=== PATIENT | male | born 1955 | race Caucasian/White ===

== ENCOUNTER 2017-10-02 17:05 | Emergency (ER) | payer OTHER ==
[~2017-10-02] VITALS: Ht 170.2 cm; Wt 83.9 kg
[2017-10-02 17:09] VITALS: BP 137/79
== END 2017-10-02 17:42 | disposition home or self-care (01) ==
LOC: ER 17:05
DX: S61.213A Laceration without foreign body of left middle finger without damage to nail, initial encounter (principal); Z23 Encounter for immunization; F17.210 Nicotine dependence, cigarettes, uncomplicated; Z88.8 Allergy status to other drugs, medicaments and biological substances; W25.XXXA Contact with sharp glass, initial encounter; Y93.89 Activity, other specified; Y92.89 Other specified places as the place of occurrence of the external cause; Y99.8 Other external cause status

== ENCOUNTER → 2017-10-02 | Outpatient (CLI) | payer OTHER ==
[~2017-10-02] VITALS: Ht 170.2 cm; Wt 83.9 kg
[~2017-10-02] MED LIST: CAL-CITRATE PL1 EACH PO; DILAUDID2 M1 PO; ERYTHROMYCIN E3.5 G1 OPHTHALMIC; FISH OIL 1,001000 M2 PO; FOSAMAX 70 MG T70 M1 PO; MEDROLDOSEPACK PO; NAPROSYN500 MG PO; PERCOCET 10-321 EACH PO; VITAMIN D-32000 UNIT PO; VITAMIN D1000 UNI2 PO; ZOCOR PO
--- NOTE | ~2017-10-02 | HPC ---
[facility] [place] [address] PAIN MANAGEMENT CONSULTATION Name: DANYELLE PRATT Room #: REG [facility].#: [id number] Admission: 10/02/17 Attend Phys: Susanne Bueno MD Discharge: Date of : 57 Report #: [id number] THIS REPORT FOR: //name// CC: ONEL Bueno DATE OF SERVICE: 10/02/2017 FOLLOWUP COMPLAINT: "I have had some return of the pain and has returned to the pain clinic for another injection. I had back surgery and now the pain is going down my back with numbness and tingling. I also have some tingling in the front of my neck." FOLLOWUP HISTORY: The patient is a 62-year-old gentleman who has been seen in the past by the pain clinic. This was in 2008. The patient underwent series of epidural steroid injections at that time. Since that time, he has noted some worsening of his pain. He underwent surgery in the low back area. Rods and pedicle screws have been placed. At this juncture, he has noted some worsening of his pain and some recurrence of pain symptoms in the low back with pain radiating down into his legs. He states that he has returned to the pain clinic for evaluation and possible series of epidural steroid injection to help control the pain and discomfort, which he is experiencing. He notes pain in his lower back radiating down his leg in the right calf into the left area of his foot. Also, notes some weakness in this area. Notes that the pain has worsened over the last year. He describes that the pain involves numbness, tingling, spasms and some weakness. Rates it as 6/10. Notes that the pain is worse if he stands for too long as well as with over exertion. Hot baths and medications have been somewhat helpful. ALLERGIES: No known drug allergies. CURRENT MEDICATIONS: Calcium, fish oil 1000 mg, vitamin D3, Fosamax 70 mg, Zocor 40 mg. PAST MEDICAL HISTORY: Asthma, stomach problems, arthritis. PAST SURGICAL HISTORY: 1. Back surgery x 2, 2001 and approximately 2010. 2. Neck surgery ____ 1998. 3. Carpal tunnel, left x 3, 1991, 2000, and 2010. 4. Herniorrhaphy repair as a child. SOCIAL HISTORY: He is disabled, has not worked since 1997. Smoke cigarettes, [facility] [address] [place] [address] PAIN MANAGEMENT CONSULTATION Name: DANYELLE PRATT Room #: REG CLI [facility]#: [id number] Admission: 10/02/17 Attend Phys: Susanne Bueno MD Discharge: Date of : 57 Report #: [id number] 1-1/2 packs per day, smoked for about 30 years. Denies use of alcoholic beverages. REVIEW OF SYSTEMS: Questionnaire in the chart indicates some weight change, weakness, wears glasses, blurred vision, constipation, numbness in fingers and tingling sensation in the low back area as well as some in the upper extremities from cervical radicular problems, easy bruising tendency. LABORATORY DATA: No new laboratory values are available at the time of our interview. PHYSICAL EXAMINATION: GENERAL: The patient is a well-developed white male, appears his stated age. He is alert and oriented x 3. Affect is appropriate. NECK: No JVD. HEART: Regular rate. ABDOMEN: Nontender. MUSCULOSKELETAL: Without significant scoliosis, kyphosis or lordosis. He has some pain and discomfort, which radiates down into the L5-S1 distribution of his low back, particularly on the right side involving his foot. The patient walks with a slight antalgic gait. Uses hands to go from a sitting to a walking position. Some decreased movement in the low back area with a well-healed scar in the L4-L5 area. Some paraspinous muscle soreness, left and right at the zone. PAIN CLINIC ASSESSMENT: 1. The patient is not being treated for rheumatoid arthritis. He has some arthritic changes undergoing in his low back area. 2. Height 5 feet 7 inches, weight 185 pounds, BMI is 29. 3. Vital signs, blood pressure 142/83, pulse 67, respiratory rate 16, room air saturation 97%. 4. Pain intensity 6/10. 5. Fall risk, the patient has not fallen in the last 3 months. 6. The patient is not being treated with a blood thinner. 7. History of hypertension. The patient has not taken an antihypertensive medication. 8. Opioid therapy greater than 6 weeks, the patient is not on opioid therapy. 9. Risk assessment tool. 10. Functional assessment tool. 11. Recreational drug use, denies use of recreational drugs. 12. Smoker. The patient smokes 1 pack of cigarettes per day and this has been for many years, is in the process of trying smoking cessation. 13. Alcohol, the patient denies use of alcoholic beverages. IMPRESSION: 1. Lumbar radiculopathy with pain radiating down into the right leg, status [facility] [address] [place] [address] PAIN MANAGEMENT CONSULTATION Name: DANYELLE PRATT Room #: REG [facility]#: [id number] Admission: 10/02/17 Attend Phys: Susanne Bueno MD Discharge: Date of : 57 Report #: [id number] post fusion, low back with rods and pedicle screws at L4-L5. 2. Anemia. 3. Gastrointestinal/stomach problems. RECOMMENDATIONS: We discussed treatment options with the patient. Risks and benefits of an epidural steroid injection were again reviewed. Possible complications of the procedure were discussed. The patient elects to proceed. PROCEDURE NOTE: The patient was taken to the procedure area. He was assisted on the table. His back was sterilely prepped with Betadine. Anterior and posterior viewing using fluoroscopy was instituted. After the target area was noted, this area had been sterilely prepped with Betadine and infiltrated with 0.25% bupivacaine. A 17-gauge Tuohy with loss of resistance technique was then placed. A total of 80 mg Depo-Medrol, 40 mg triamcinolone and 2 mL of 0.25% bupivacaine was injected. The patient tolerated the procedure well. Pain was a 5 at the time of discharge. He will follow up in the future. Total of 17 seconds fluoroscopy time was used. Thank you very much for letting us participate in his care. We hope he continues to improve. By: [id number] Susanne Bueno MD /nt
[2017-10-02 09:55] VITALS: BP 142/83
== END | disposition home or self-care (01) ==
LOC: PAIN 06:54
DX: M54.16 Radiculopathy, lumbar region (principal); D64.9 Anemia, unspecified; M06.9 Rheumatoid arthritis, unspecified; I10 Essential (primary) hypertension; F11.20 Opioid dependence, uncomplicated; Z87.891 Personal history of nicotine dependence; Z98.890 Other specified postprocedural states; J45.909 Unspecified asthma, uncomplicated; Z79.899 Other long term (current) drug therapy

== ENCOUNTER → 2017-11-04 | Outpatient (CLI) | payer OTHER ==
[~2017-11-04] VITALS: Ht 170.2 cm; Wt 88.1 kg
--- NOTE | ~2017-11-04 | HPC ---
[facility] [address] [address] PAIN MANAGEMENT CONSULTATION Name: DANYELLE PRATT Room #: REG [facility].#: [id number] Admission: 11/04/17 Attend Phys: Susanne Bueno MD Discharge: Date of : 57 Report #: [id number] THIS REPORT FOR: //name// CC: Reji Bueno DATE OF SERVICE: 11/04/2017 FOLLOWUP COMPLAINT: "The pain improved, but I am still having some pain down into my leg." FOLLOWUP HISTORY: The patient is a 62-year-old gentleman, who has been seen in the Pain Clinic because of lumbar radiculopathy. He underwent an epidural steroid injection at the last visit, he did glean benefit from this. He continues to have pain, which he describes as problematic and rates it as a 4/10. He is having some numbness down into his right leg. He feels that his left leg, which was more problematic at the last visit, is improving. Overall, he would like to proceed with another epidural steroid injection. As you recall, he has undergone fixation of his low back area with rods and screws in the low back area at L4 and L5. ALLERGIES: No known drug allergies. MEDICATIONS: Calcium, fish oil 1000 mg, vitamin D3, Fosamax 70 mg, Zocor 40 mg. PAST MEDICAL HISTORY: Asthma, stomach problems, osteoarthritis. PAST SURGICAL HISTORY: Back surgery x 2 in 2001 and approximately 2010, neck surgery in 1998, carpal tunnel surgery left x 3 in 1991, 2000 and 2010. PAIN CLINIC ASSESSMENT: 1. The patient does have some arthritic changes in the lower portion of his back. He is not being treated for rheumatoid arthritis. 2. Height 5 feet 7 inches, weight 194 pounds, BMI is 30. 3. Vital signs: Blood pressure 136/88, pulse 64, respiratory rate 16, room air saturation 98%. 4. Pain intensity: 4/10. 5. Fall risk: The patient has not fallen in the last 3 months. 6. Blood thinner: The patient is not on a blood thinner 7. History of hypertension: The patient is not being treated for hypertension. 8. Opioid therapy greater than 6 weeks: The patient is not on opioid therapy. 9. Risk assessment tool: The patient is not on opioid medications. [address] [address] PAIN MANAGEMENT CONSULTATION Name: DANYELLE PRATT PENNY Room #: REG CLI [facility]#: [id number] Admission: 11/04/17 Attend Phys: Susanne Bueno MD Discharge: Date of : 57 Report #: [id number] 10. Functional assessment tool. 11. Recreational drug use: The patient denies using recreational drugs. 12. Tobacco: The patient smokes cigarettes on a daily basis about 1 pack per day. 13. Alcohol: The patient denies use of alcoholic beverages. PHYSICAL EXAMINATION: GENERAL: The patient is a well-developed white male. He appears his stated age. He is alert and oriented x 3. Affect is appropriate. Speech is fluent. HEENT: Normocephalic, atraumatic. Extraocular eye muscles intact. The patient is on somewhat thick glasses. Mucous membrane is moist. Sclerae nonicteric. Hearing is within normal limits. NECK: With no JVD or adenopathy. Good range of motion. HEART: Regular rate. ABDOMEN: Nontender. MUSCULOSKELETAL AND LOWER EXTREMITIES: Without significant scoliosis, kyphosis or lordosis. He has pain and discomfort, which radiates down the L5-S1 distribution, particularly on the right side. States that his foot has some numbness sensation in it. Walks with an antalgic gait. Uses hands to go from a sitting to walking position. Decreased movement in the lumbar area with well-healed scar at L4-L5. Some paraspinous muscle soreness on the right. IMPRESSION: 1. Lumbar radiculopathy, status post fusion of the L4-L5 areas with rods and pedicle screws. 2. Anemia. 3. Gastroesophageal stomach problems. RECOMMENDATIONS: We discussed treatment options with the patient. At this juncture, we will proceed with another epidural steroid injection. Risks and benefits of the procedure were again reviewed. Possible complication of the procedure, which could include but are not limited to infection, increased muscle soreness, headache, worsening of pain, bleeding, and no improvement in pain, and the patient elects to proceed. PROCEDURE NOTE: The patient was taken into the examination room. He was helped on the examination table. He was placed in the prone position. Fluoroscopy was used to identify the L5-S1 interspace using fluoroscopy. Anterior and posterior views were used. This area had been sterilely prepped with Betadine. 0.25% bupivacaine was infiltrated into the L5-S1 area on the right. A 17-gauge Tuohy with loss of resistance technique was used to gain access to the epidural space. There was no CSF, heme or paresthesia. A total of 80 mg Depo-Medrol, 40 mg triamcinolone, and 2 mL of 0.25% bupivacaine was injected. The patient tolerated the procedure well. There were no complications. A total of 8 mL fluoroscopy time was used. The patient's pain was 3 at the time of discharge. He will follow up in the future as needed. [facility] [address] [place] [address] PAIN MANAGEMENT CONSULTATION Name: DANYELLE PRATT Room #: REG [facility]#: [id number] Admission: 11/04/17 Attend Phys: Susanne Bueno MD Discharge: Date of : 57 Report #: [id number] We would like to thank you for letting us participate in his care. We hope he continues to improve. By: [id number] Susanne Bueno MD /nt
[2017-11-04 08:12] VITALS: BP 136/88
== END | disposition home or self-care (01) ==
LOC: PAIN 10-30 07:16
DX: M54.16 Radiculopathy, lumbar region (principal); D64.9 Anemia, unspecified; F17.210 Nicotine dependence, cigarettes, uncomplicated; I10 Essential (primary) hypertension; Z68.30 Body mass index [BMI] 30.0-30.9, adult; Z98.890 Other specified postprocedural states; J45.909 Unspecified asthma, uncomplicated; M19.90 Unspecified osteoarthritis, unspecified site; Z79.899 Other long term (current) drug therapy

== ENCOUNTER 2018-02-15 09:33 | Emergency (ER) | payer OTHER ==
[~2018-02-15] VITALS: Ht 170.2 cm; Wt 83.9 kg
== END 2018-02-15 10:46 | disposition home or self-care (01) ==
LOC: ER 09:33
DX: T15.92XA Foreign body on external eye, part unspecified, left eye, initial encounter (principal); F17.210 Nicotine dependence, cigarettes, uncomplicated; Z88.8 Allergy status to other drugs, medicaments and biological substances; X58.XXXA Exposure to other specified factors, initial encounter; Y93.89 Activity, other specified; Y92.89 Other specified places as the place of occurrence of the external cause; Y99.8 Other external cause status

== ENCOUNTER 2018-07-26 13:06 | Emergency (ER) | payer OTHER ==
[~2018-07-26] VITALS: Ht 170.2 cm; Wt 86.6 kg
[2018-07-26] MEDS ORDERED: IBUPROFEN 600600 M1 PO (14:31)
[2018-07-26 14:37] VITALS: BP 139/72
== END 2018-07-26 14:38 | disposition home or self-care (01) ==
LOC: ER 13:06
DX: S90.32XA Contusion of left foot, initial encounter (principal); F17.210 Nicotine dependence, cigarettes, uncomplicated; Z91.048 Other nonmedicinal substance allergy status; W00.0XXA Fall on same level due to ice and snow, initial encounter; Y92.89 Other specified places as the place of occurrence of the external cause; Y93.89 Activity, other specified; Y99.8 Other external cause status

== ENCOUNTER 2019-07-01 19:20 | Emergency (ER) | payer OTHER ==
[~2019-07-01] VITALS: Ht 170.2 cm; Wt 78.5 kg
[~2019-07-01 19:20] MED LIST changes: +IBUPROFEN 600600 M1 PO
[2019-07-01] MEDS ORDERED: PERCOCET 10-321 EAC1 PO (19:57)
[2019-07-01] MEDS ORDERED: SERTRALINE HCL50 MG PO (20:01)
[2019-07-01 20:07] LABS: ABSOLUTE NEUTROPHILS 5.2 thou/uL (1.4-8.2); BASOPHILS 0.8 % (0.0-2.0); HEMATOCRIT 43.2 % (42.0-52.0); HEMOGLOBIN 14.3 gm/dL (14.0-18.0); LYMPHOCYTES 26.6 % (24.0-44.0); MCH 29.3 pg (26.0-34.0); MCHC 33.1 g/dL (28.0-37.0); MCV 88.3 fL (80.0-100.0); MONOCYTES 6.2 % (1.0-8.0); PLATELET COUNT 133 thou/uL (150-400); POLYS 64.4 % (36.0-66.0); RBC 4.89 mil/uL (4.50-6.00); RDW 13.8 % (10.5-14.5); WBC 8.1 thou/uL (4.0-11.0)
[2019-07-01 20:16] LABS: ANION GAP 4 mmol/L (7-16); BUN 16 mg/dL (7-18); CALCIUM 9.8 mg/dL (8.5-10.1); CHLORIDE 106 mmol/L (98-107); CO2 30 mmol/L (21-32); CREATININE 0.9 mg/dL (0.7-1.3); GLUCOSE 89 mg/dL (74-106); POTASSIUM 4.4 mmol/L (3.5-5.1); SODIUM 140 mmol/L (136-145)
[2019-07-01 20:25] LABS: DIRECT BILIRUBIN < 0.1 mg/dL (<0.1-0.2); SGOT 23 U/L (15-37); SGPT 28 U/L (30-65); TOTAL BILIRUBIN 0.4 mg/dL (<0.1-1.0); TOTAL PROTEIN 7.2 g/dL (6.4-8.2); TROPONIN-I <0.06 ng/mL (<0.06)
[2019-07-01] MEDS ORDERED: MOBIC15 MG PO (22:28)
[2019-07-01 22:38] VITALS: BP 158/88
--- NOTE | 2019-07-04 16:00 | EKG ---
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 Missing lead(s): V2 No previous ECG available for comparison Electronically Signed On 07-04-2019 15:59:47 RN POST PARTUM by Kareem Balbuena [email or web address] <ELECTRONICALLY SIGNED> By: Kareem Balbuena MD 07/04/19 1559 28 28 Kareem Balbuena MD /JESS
--- NOTE | 2019-07-04 16:00 | EKG ---
[address] [address] ELECTROCARDIOGRAM REPORT Name: DANYELLE PRATT PENNY 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
== END 2019-07-01 22:55 | disposition home or self-care (01) ==
LOC: ER 19:20
PROVIDERS: Emergency Medicine
DX: R07.9 Chest pain, unspecified (principal); F17.210 Nicotine dependence, cigarettes, uncomplicated; Z91.048 Other nonmedicinal substance allergy status

== ENCOUNTER 2021-06-19 10:24 | Emergency (ER) | payer OTHER ==
[~2021-06-19] VITALS: Ht 172.7 cm; Wt 81.7 kg
[~2021-06-19 10:24] MED LIST changes: +MOBIC15 MG PO; +PERCOCET 10-321 EAC1 PO; +SERTRALINE HCL50 MG PO
[2021-06-19 10:29] VITALS: BP 156/71
== END 2021-06-19 10:37 | disposition home or self-care (01) ==
LOC: ER 10:24
DX: S60.455A Superficial foreign body of left ring finger, initial encounter (principal); Z53.21 Procedure and treatment not carried out due to patient leaving prior to being seen by health care provider; Z98.890 Other specified postprocedural states